=== PATIENT | male | born 1980 | race Caucasian/White ===

== ENCOUNTER 2016-09-05 03:08 | Emergency (ER) | payer BC ==
[2016-09-05] MEDS ORDERED: HYDROCODONE/ACETAMINOPHEN 5-325 MG TABLET PO ONE (03:21)
--- NOTE | 2016-09-05 03:28 | ER Document Report ---
ED General - General Chief Complaint: Foot Pain Stated Complaint: LEFT FOOT PAIN Notes: Patient is a 46-year-old male presents with complaint of left foot pain. Patient stepped and slipped. His left ankle inverted. Develop pain over the lateral and dorsal aspect of his left ankle and foot. He denies any numbness into his foot. He has pain with motion of his foot or toes. No other complaints at this time. No knee pain. No other injuries. TRAVEL OUTSIDE OF THE [place] IN LAST 30 DAYS: No - Related Data Allergies/Adverse Reactions: codeine [Codeine] Adverse Reaction (Intermediate, Verified 11/11/15 12:42) Hives Past Medical History - Social History Smoking Status: Never Smoker Frequency of alcohol use: None Drug Abuse: None Family History: Reviewed & Not Pertinent Review of Systems - Review of Systems Notes: My Normal Review Basic REVIEW OF SYSTEMS: CONSTITUTIONAL : Denies fever, chills, or sweats. Denies recent illness. EENT: Denies eye, ear, throat, or mouth pain or symptoms. Denies nasal or sinus congestion. RESPIRATORY: Denies cough, cold, or chest congestion. Denies shortness of breath, difficulty breathing, or wheezing. GASTROINTESTINAL: Denies abdominal pain. Denies nausea, vomiting, or diarrhea. Denies constipation. Last BM: MUSCULOSKELETAL: Left foot pain. SKIN: Denies rash or skin lesions. NEUROLOGICAL: Denies altered mental status or loss of consciousness. Denies headache. Denies weakness or paralysis or loss of use of either side. Denies problems with gait or speech. Denies sensory or motor loss. ALL OTHER SYSTEMS REVIEWED AND NEGATIVE. Physical Exam - Vital signs Vitals: Temp Pulse Resp BP Pulse Ox 97.9 F 83 18 108/89 H 100 09/05/16 03:09 09/05/16 03:09 09/05/16 03:09 09/05/16 03:09 09/05/16 03:09 - Notes Notes: General Appearance: Well nourished, alert, cooperative, no acute distress, no obvious discomfort. Vitals: reviewed, See vital signs table. Extremities: strength 5/5 in all extremities, good pulses in all extremities, pain to palpation over the left anterior talofibular ligament on the left ankle. Some pain into the lateral dorsum area of the left foot. Patient's is able to move his left foot has pain in doing so. Distal sensation intact. Left knee is nontender to palpation. No obvious deformities. Skin: warm, dry, appropriate color, no rash Neuro: speech clear, oriented x 3, normal affect, responds appropriately to questions. Course - Vital Signs Vital signs: Temp Pulse Resp BP Pulse Ox 97.9 F 83 18 108/89 H 100 09/05/16 03:09 09/05/16 03:09 09/05/16 03:09 09/05/16 03:09 09/05/16 03:09 - Transfer of Care Notes: 09/05/16 04:18 Patient will be discharged home. X-rays negative. He has an ankle sprain. She 'll be given Bird wrap and crutches. Is encouraged return to ER if has worsening pain or feels unwell. I will give him a few days off work. Patient agrees with plan and will be discharged home. Dictation of this chart was performed using voice recognition software; therefore, there may be some unintended grammatical errors. Discharge - Discharge Clinical Impression: Sprain of foot, left Qualifiers: Encounter type: initial encounter Qualified Code(s): S93.602A - Unspecified sprain of left foot, initial encounter Left ankle sprain Qualifiers: Encounter type: initial encounter Involved ligament of ankle: unspecified ligament Qualified Code(s): S93.402A - Sprain of unspecified ligament of left ankle, initial encounter Condition: Good Disposition: HOME, SELF-CARE Instructions: Oral Narcotic Medication ([facility]), Sprained Ankle ([facility]) Additional Instructions: Please return to the ER immediately if you develop worsening pain or feel unwell. Forms: Return to Work Referrals: MICHELLE MCKEON MD [Primary Care Provider] - Follow up in 3-5 days
[2016-09-05] MEDS ORDERED: HYDROCODONE/ACETAMINOPHEN 5-325 MG 6 TAB/DSPK PO PRN (04:16)
[2016-09-05 05:05] VITALS: BP 115/79
== END 2016-09-05 04:35 | disposition home or self-care (01) ==
LOC: ER 03:08
DX: S93.602A Unspecified sprain of left foot, initial encounter (principal); S93.402A Sprain of unspecified ligament of left ankle, initial encounter; M79.672 Pain in left foot; X50.0XXA Overexertion from strenuous movement or load, initial encounter; Z88.6 Allergy status to analgesic agent
CPT/HCPCS: 99283

== ENCOUNTER 2017-02-01 08:51 | Emergency (ER) | payer BC ==
[2017-02-01 09:06] VITALS: BP 128/91
[2017-02-01] MEDS ORDERED: IBUPROFEN 800 MG TABLET PO ONE (09:26)
--- NOTE | 2017-02-01 09:32 | ER Document Report ---
ED Wound - General Chief Complaint: Laceration Stated Complaint: RIGHT WRIST INJURY Time Seen by Provider: 02/01/17 09:22 Notes: 37 yo male c/o laceration to right wrist. unknown mechanism of injury. occurred at work approx 0530 this morning. no active bleeding. no s/s tendon injury TRAVEL OUTSIDE OF THE [place] IN LAST 30 DAYS: No - HPI Patient complains to provider of: Laceration Occurred: This morning Onset/Duration: Sudden Quality of pain: Achy Skin Temperature: Warm Skin Color: Normal Capillary refill: < 3 seconds Distal pulses present: Yes Associated Symptoms: None - Related Data Allergies/Adverse Reactions: codeine [Codeine] Adverse Reaction (Intermediate, Verified 02/01/17 09:03) Hives Past Medical History - General Information source: Patient - Social History Smoking Status: Never Smoker Frequency of alcohol use: None Drug Abuse: None Lives with: Family Family History: Reviewed & Not Pertinent Patient has suicidal ideation: No Patient has homicidal ideation: No Renal/ Medical History: Denies: Hx Peritoneal Dialysis - Immunizations Hx Diphtheria, Pertussis, Tetanus Vaccination: Yes Review of Systems - Review of Systems Constitutional: No symptoms reported EENT: No symptoms reported Cardiovascular: No symptoms reported Respiratory: No symptoms reported Gastrointestinal: No symptoms reported Genitourinary: No symptoms reported Male Genitourinary: No symptoms reported Musculoskeletal: No symptoms reported Skin: See HPI Hematologic/Lymphatic: No symptoms reported Neurological/Psychological: No symptoms reported Physical Exam - Vital signs Vitals: Temp Pulse Resp BP Pulse Ox 98.1 F 87 16 128/91 H 95 02/01/17 09:04 02/01/17 09:04 02/01/17 09:04 02/01/17 09:04 02/01/17 09:04 Interpretation: Normal - General General appearance: Appears well, Alert - HEENT Head: Normocephalic, Atraumatic Eyes: Normal Pupils: PERRL - Respiratory Respiratory status: No respiratory distress Chest status: Nontender Breath sounds: Normal Chest palpation: Normal - Cardiovascular Rhythm: Regular Heart sounds: Normal auscultation Murmur: No - Abdominal Inspection: Normal Distension: No distension Bowel sounds: Normal Tenderness: Nontender Organomegaly: No organomegaly - Back Back: Normal, Nontender - Extremities General upper extremity: Normal inspection, Nontender, Normal color, Normal ROM , Normal temperature General lower extremity: Normal inspection, Nontender, Normal color, Normal ROM , Normal temperature, Normal weight bearing. No: Beti's sign - Neurological Neuro grossly intact: Yes Cognition: Normal Orientation: AAOx4 Aniket Coma Scale Eye Opening: Spontaneous [place] Coma Scale Verbal: Oriented [place] Coma Scale Motor: Obeys Commands [place] Coma Scale Total: 15 Speech: Normal Motor strength normal: LUE, RUE, LLE, RLE Sensory: Normal - Psychological Associated symptoms: Normal affect, Normal mood - Skin Skin Temperature: Warm Skin Moisture: Dry Skin Color: Normal Skin irregularity: Laceration Course - Vital Signs Vital signs: Temp Pulse Resp BP Pulse Ox 98.1 F 87 16 128/91 H 95 02/01/17 09:04 02/01/17 09:04 02/01/17 09:04 02/01/17 09:04 02/01/17 09:04 Procedures - Laceration/Wound Repair right wrist Wound length (cm): 0.5 Wound's Depth, Shape: Into muscle, Linear Laceration pre-procedure: Shur-Clens applied Wound explored: Clean Wound Repaired With: Steri-strips, Dermabond Post-procedure NV exam normal: Yes Complications: No Discharge - Discharge Clinical Impression: Laceration of right wrist Qualifiers: Encounter type: initial encounter Qualified Code(s): S61.511A - Laceration without foreign body of right wrist, initial encounter Condition: Stable Disposition: HOME, SELF-CARE Instructions: Skin Adhesive Closure ([facility]), Care of Steri-Strip Closure ([facility]), Ibuprofen (General) ([facility]) Prescriptions: Ibuprofen [Motrin 800 Mg Tablet] 800 mg PO Q6H #20 tablet
[2017-02-01] MEDS ORDERED: DIPH/PERTUSS(ACELL)/TETANUS VAC/PF 0.5 ML SYR (>=10YO) IM ONE (10:05)
--- NOTE | 2017-02-01 10:43 | RADIOLOGY REPORT (SQ) ---
EXAM DESCRIPTION: WRIST RIGHT 3 VIEWS COMPLETED DATE/TIME: 02/01/2017 10:32 am REASON FOR STUDY: laceration, ? foreign body COMPARISON: None. NUMBER OF VIEWS: Three views. TECHNIQUE: AP, lateral, and oblique radiographic images acquired of the right wrist. LIMITATIONS: None. FINDINGS: MINERALIZATION: Normal. BONES: No acute fracture or dislocation. No worrisome bone lesions. Normal alignment. SOFT TISSUES: No soft tissue swelling. No foreign body. OTHER: No other significant finding. IMPRESSION: NEGATIVE STUDY OF THE RIGHT WRIST. NO RADIOGRAPHIC EVIDENCE OF ACUTE INJURY. TECHNICAL DOCUMENTATION: JOB ID: [id number] [employer]- All Rights Reserved
== END 2017-02-01 10:21 | disposition home or self-care (01) ==
LOC: ER 08:51
DX: S61.511A Laceration without foreign body of right wrist, initial encounter (principal); X58.XXXA Exposure to other specified factors, initial encounter; Y99.0 Civilian activity done for income or pay
CPT/HCPCS: 99283